=== PATIENT | female | born 1995 | race Two or more races ===

== ENCOUNTER 2021-11-18 12:14 | Emergency (ER) | payer OTHER ==
[~2021-11-18] VITALS: Ht 167.6 cm; Wt 61.2 kg
[2021-11-18] MEDS ORDERED: KETO10TA2 PO (14:00)
[2021-11-18] MEDS ORDERED: NORFLEX100MG PO (14:00)
== END 2021-11-18 14:37 | disposition home or self-care (01) ==
LOC: ER 12:14
DX: M54.50 Low back pain, unspecified (principal)